=== PATIENT | male | born 2005 | race Caucasian/White ===

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

== ENCOUNTER → 2024-03-10 | Outpatient (CLI) | payer BC ==
[2024-03-10 12:30] LABS: CHOLESTEROL RISK RATIO 4.15 (<5); HDL CHOLESTEROL 44.5 MG/DL (>40); LDL CHOLESTEROL 118.9 MG/DL (<100); NON-HDL-C 140.5 MG/DL
[2024-03-10 12:34] LABS: TOTAL 25(OH) VITAMIN D 36.5 NG/ML (20.0-100.0)
== END ==
LOC: M LAB 11:13
PROVIDERS: ATTEND Physician Assistant
DX: E55.9 Vitamin D deficiency, unspecified (principal)

== ENCOUNTER → 2025-02-27 | Outpatient (REF) | payer BC, MEDICAID ==
[2025-02-27 18:23] LABS: ALT/SGPT 21 U/L (7.0-40); AST/SGOT 16 U/L (<34); CALCIUM LEVEL 9.9 MG/DL (8.5-10.1); CARBON DIOXIDE LEVEL 29 MMOL/L (20-31); CHLORIDE LEVEL 103 MMOL/L (98-107); CHOLESTEROL LEVEL 204 MG/DL (<200); CHOLESTEROL RISK RATIO 4.25 (<5); CREATININE FOR GFR 1.06 MG/DL (0.70-1.30); GLOMERULAR FILTRATION RATE > 90.0 (>60); LDL CHOLESTEROL 135.9 MG/DL (<100); NON-HDL-C 156.1 MG/DL; POTASSIUM SERUM 4.9 MMOL/L (3.5-5.1); SODIUM LEVEL 141 MMOL/L (136-145); TRIGLYCERIDES LEVEL 101 MG/DL (<150)
[2025-02-27 18:24] LABS: TOTAL 25(OH) VITAMIN D 23.2 NG/ML (20.0-100.0)
[2025-02-27 18:49] LABS: HIV 1&2 SCREEN NEGATIVE (NEGATIVE)
[2025-02-27 18:56] LABS: HEPATITIS C VIRUS ABY INDEX < 0.02 INDEX (<0.8)
== END ==
LOC: M LAB REF 17:12
PROVIDERS: ATTEND Nurse Practitioner Family
DX: E55.9 Vitamin D deficiency, unspecified (principal); Z13.228 Encounter for screening for other metabolic disorders; Z11.9 Encounter for screening for infectious and parasitic diseases, unspecified